=== PATIENT | female | born 1995 | race Hispanic/Latino ===

== ENCOUNTER 2022-09-05 15:03 | Emergency (ER) | payer SELFPAY ==
[~2022-09-05] VITALS: Ht 149.9 cm; Wt 62.4 kg
[2022-09-05] VITALS (7 sets, daily range): BP systolic 129–145; BP diastolic 87–105
[2022-09-05] MEDS ORDERED: KEFLEX500 MG PO (16:49)
== END 2022-09-05 17:14 | disposition home or self-care (01) | DRG 605 ==
LOC: ED 15:03
DX: S61.431A Puncture wound without foreign body of right hand, initial encounter (principal); W45.8XXA Other foreign body or object entering through skin, initial encounter

== ENCOUNTER 2024-10-02 09:25 | Emergency (ER) | payer SELFPAY ==
[~2024-10-02] VITALS: Ht 149.9 cm; Wt 65.0 kg
[~2024-10-02 09:25] MED LIST: KEFLEX500 MG PO
[2024-10-02 09:57] VITALS: BP 124/90
[2024-10-02] MEDS ORDERED: SODIUM CHLORIDE 0.9% 1,000 ML IV STA (10:05)
[2024-10-02] MEDS ORDERED: Pantoprazole Sodium 40 MG VIAL (Protonix) IV STA (10:05)
[2024-10-02] MEDS ORDERED: ONDANSETRON HCl 4 MG/2 ML SDV IV STA (10:05)
[2024-10-02 10:22] VITALS: BP 118/85
[2024-10-02 10:30] VITALS: BP 118/83
[2024-10-02 10:51] LABS: BASO% 0.2 % (0-3); HEMATOCRIT 44.6 % (37.0-47.0); HEMOGLOBIN 15.4 g/dl (12.0-16.0); IMMATURE GRANULOCYTES 0.1 % (0.0-5.0); LYMPH% 7.9 % (15-41); MEAN CELL VOLUME 91.6 fL CALC (80.0-100.0); MEAN CORPUSCULAR HGB 31.6 pG CALC (26.0-32.0); MEAN CORPUSCULAR HGB CONC 34.5 g/dL CAL (32.0-36.0); MONO% 6.1 % (2-13); NEUT# 10.35 thou/uL (2.00-7.15); NEUT% 85.7 % (42-76); RED BLOOD COUNT 4.87 mill/uL (4.20-5.60); RED CELL DISTRI WIDTH 12.3 % (11.5-15.5)
[2024-10-02 10:51] LABS: URINE BILIRUBIN - DIPSTICK Negative (NEGATIVE); URINE BLOOD DIPSTICK Trace-intact (NEGATIVE); URINE GLUCOSE - DIPSTICK Negative (NEGATIVE); URINE KETONE Negative (NEGATIVE); URINE LEUK ESTERASE Negative (NEGATIVE); URINE NITRITE - DIPSTICK Negative (Negative); URINE PH 7.5 (4.5-8.0); URINE PROTEIN - DIPSTICK Negative (NEG-TRACE); URINE UROBILINOGEN - DIPSTICK 0.2 E.U./dL (0.2)
[2024-10-02 10:52] LABS: URINE COLOR Yellow
[2024-10-02 11:06] LABS: ALBUMIN 4.9 g/dL (3.2-5.0); BILIRUBIN, TOTAL 0.6 mg/dL (0.02-1.3); CREATININE 0.5 mg/dL (0.5-1.0); POTASSIUM 4.2 mmol/l (3.5-5.1); TOTAL PROTEIN 8.9 g/dL (6.3-8.2)
[2024-10-02] MEDS ORDERED: ZOFRAN4 MG/TAB PO (12:05)
[2024-10-02] MEDS ORDERED: MIRALAX17 GM PO (12:05)
[2024-10-02] MEDS ORDERED: COLACE100 MG PO (12:05)
[2024-10-02] MEDS ORDERED: NEXIUM40 M1 PO (12:05)
[2024-10-02 12:17] VITALS: BP 118/83
== END 2024-10-02 12:22 | disposition home or self-care (01) | DRG 392 ==
LOC: ED 09:25
PROVIDERS: Emergency Medicine
DX: K29.70 Gastritis, unspecified, without bleeding (principal); K59.00 Constipation, unspecified
CPT/HCPCS: J2405; J2470